=== PATIENT | male | born 1990 | race Hispanic/Latino ===

== ENCOUNTER 2022-01-11 22:51 | Emergency (ER) | payer OTHER ==
[~2022-01-11] VITALS: Ht 167.6 cm; Wt 68.0 kg
[2022-01-11 23:06] VITALS: BP 133/81
[2022-01-12 00:27] LABS: HEMATOCRIT 40.9 % (39.0-50.0); HEMOGLOBIN 13.5 g/dl (14.0-18.0); IMMATURE GRANULOCYTES 0.5 % (0.0-5.0); MEAN CELL VOLUME 93.8 fL CALC (80.0-100.0); NEUT# 4.02 thou/uL (1.82-7.42); RED BLOOD COUNT 4.36 mill/uL (4.70-6.10); RED CELL DISTRI WIDTH 13.4 % (11.5-15.5)
[2022-01-12 00:49] LABS: ALBUMIN 4.5 g/dL (3.2-5.0); ALKALINE PHOSPHATASE 57 u/l (38-126); AMYLASE 129 u/l (30-110); ANION GAP 11 (6-22 (CALC)); BILIRUBIN, TOTAL 0.3 mg/dL (0.0-1.4); BUN 15 mg/dL (9-20); BUN/CREATININE RATIO 16 (12-20 (CALC)); CARBON DIOXIDE 27 mmol/l (22-30); CHLORIDE 106 mmol/l (95-108); CREATININE 0.9 mg/dL (0.7-1.3); GFR FOR AFR.AMER. > 60 ML/MIN (>=60 (CALC)); GFR OTHER RACES > 60 ML/MIN (>=60 (CALC)); LIPASE 300 u/l (23-300); POTASSIUM 3.7 mmol/l (3.5-5.1); SGOT/AST 27 u/l (17-59); SODIUM 141 mmol/l (137-146); TOTAL PROTEIN 7.1 g/dL (6.3-8.2)
[2022-01-12 01:00] LABS: URINE BILIRUBIN - DIPSTICK NEGATIVE (NEGATIVE); URINE BLOOD DIPSTICK NEGATIVE (NEGATIVE); URINE COLOR YELLOW; URINE GLUCOSE - DIPSTICK NEGATIVE (NEGATIVE); URINE KETONE NEGATIVE (NEGATIVE); URINE LEUK ESTERASE NEGATIVE (NEGATIVE); URINE PROTEIN - DIPSTICK NEGATIVE (NEG-TRACE); URINE SPECIFIC GRAVITY 1.015; URINE UROBILINOGEN - DIPSTICK 0.2 E.U./dL (0.2)
[2022-01-12 01:03] LABS: URINE NITRITE - DIPSTICK NEGATIVE (Negative)
[2022-01-12] MEDS ORDERED: PEPCID20 MG PO (01:32)
[2022-01-12] MEDS ORDERED: MEDDOSEPAK PO (01:32)
[2022-01-12] MEDS ORDERED: DIPHENHYDRAM50 M2 PO (01:32)
[2022-01-12 01:51] VITALS: BP 133/81
== END 2022-01-12 02:00 | disposition home or self-care (01) | DRG 916 ==
LOC: ED 22:51
PROVIDERS: Emergency Medicine
DX: T78.40XA Allergy, unspecified, initial encounter (principal); K59.00 Constipation, unspecified; X58.XXXA Exposure to other specified factors, initial encounter; Z91.010 Allergy to peanuts
CPT/HCPCS: Q9967